=== PATIENT | female | born 1985 | race Caucasian/White ===

== ENCOUNTER → 2017-04-19 | Outpatient (CLI) | payer OTHER ==
[2017-04-19 11:46] LABS: EKG EKG PERFORMED
[2017-04-19 12:30] LABS: Appearance,Urine Clear (Clear); Bilirubin,Urine Negative (Negative); Glucose,Urine (UA) Negative (Negative); Ketones,Urine Negative (Negative); Leukocyte Esterase,Urine Moderate (Negative); Mucus,Urine Rare /hpf; Nitrite,Urine Negative (Negative); Particle Count 3504; Protein,Urine Negative (Negative); Specific Gravity,Urine 1.013 (1.001-1.035); Squamous Epithelial Cell,Urine 3 /hpf (0-4); UA Billing (MACRO vs. MICRO) MICRO; Urobilinogen,Urine <2.0 mg/dL (<2.0); WBC,Urine 3 /hpf (0-5)
--- NOTE | 2017-04-19 12:33 | XR ---
EXAMINATION TYPE: XR chest 2V DATE OF EXAM: 04/19/2017 COMPARISON: NONE TECHNIQUE: PA and lateral views submitted. HISTORY: Presurgical testing FINDINGS: The lungs are clear and there is no pneumothorax, pleural effusion, or focal pneumonia. IMPRESSION: 1. No acute process.
[2017-04-19 12:47] LABS: HCT 42.7 % (34.0-46.0); HGB 14.3 gm/dL (11.4-16.0); MCV 91.5 fL (80.0-100.0); RBC 4.66 m/uL (3.80-5.40); WBC (Perox) 4.93
[2017-04-19 12:48] LABS: Basophils % (A) 0 %; CHCM 35.1; Eosinophils # (A) 0.1 k/uL (0-0.7); Eosinophils % (A) 1 %; HDW 2.55; Luc # (Auto) 0.06; Luc % (Auto) 1; Lymphocytes # (A) 1.2 k/uL (1.0-4.8); Lymphocytes % (A) 23 %; MCH 30.7 pg (25.0-35.0); MCHC 33.5 g/dL (31.0-37.0); Mean Platelet Volume 7.8; Monocytes # (A) 0.3 k/uL (0-1.0); Monocytes % (A) 6 %; Neutrophils # (A) 3.4 k/uL (1.3-7.7); Neutrophils % (A) 69 %; RDW 14.8 % (11.5-15.5)
[2017-04-19 12:58] LABS: Anion Gap 11 mmol/L; Blood Urea Nitrogen 15 mg/dL (7-17); Calcium 10.1 mg/dL (8.4-10.2); Carbon Dioxide 25 mmol/L (22-30); Chloride 103 mmol/L (98-107); Glucose 86 mg/dL (74-99); Non-African American GFR(MDRD) >60 (>60 ml/min/1.73 sqM); Potassium 4.1 mmol/L (3.5-5.1); Sodium 139 mmol/L (137-145)
[2017-04-19 13:25] LABS: Partial Thromboplastin Time 28.9 sec (22.0-30.0); Prothrombin Time 10.5 sec (9.0-12.0)
== END | disposition home or self-care (01) ==
LOC: LABWHC1 11:34
PROVIDERS: ATTEND Orthopaedic Surgery Orthopaedic Surgery of the Spine
DX: Z01.818 Encounter for other preprocedural examination (principal); Z01.812 Encounter for preprocedural laboratory examination; Z01.810 Encounter for preprocedural cardiovascular examination
CPT/HCPCS: 36415; 71020; 80048; 81001; 85025; 85610; 85730; 87070; 93005

== ENCOUNTER 2017-05-10 08:03 | Inpatient (IN) | payer OTHER ==
[2017-05-02 12:27] VITALS: BMI 40.3
[2017-05-03 14:45] LABS: Appearance,Urine Clear (Clear); Bacteria,Urine Rare /hpf; Bilirubin,Urine Negative (Negative); Glucose,Urine (UA) Negative (Negative); Ketones,Urine Negative (Negative); Leukocyte Esterase,Urine Negative (Negative); Mucus,Urine Rare /hpf; Nitrite,Urine Negative (Negative); PH, Urine 6.5 (5.0-8.0); Particle Count 896; Protein,Urine Negative (Negative); RBC,Urine 10 /hpf (0-5); Specific Gravity,Urine 1.014 (1.001-1.035); Squamous Epithelial Cell,Urine <1 /hpf (0-4); UA Billing (MACRO vs. MICRO) MICRO; Urobilinogen,Urine <2.0 mg/dL (<2.0)
[~2017-05-10 08:03] MED LIST: BACITRACIN 50,000 UNIT, POLYMYXIN B 500,000 UNIT in SODIUM CHLORIDE 0.9% IRRIGATIO 1,00... IRRIGATION ONE; DEXAMETHASONE SOD PHOSPHATE 10 MG/ML 1 ML VIAL IV ONE; HYDROmorphone 0.5 MG/0.5 ML SYRINGE IVP PRN; LACTATED RINGERS 1,000 ML IV SCH; LIDOCAINE 1% 20 ML VIAL (10MG/ML) FOR IV START INTRADERMA PRN; ONDANSETRON 4 MG/2 ML VIAL IVP ONE; SCOPOLAMINE 1.5MG/72HR PATCH TRANSDERM ONE; ceFAZolin 3 GM in SODIUM CHLORIDE 0.9% 100 ML IVPB ONE
[2017-05-10 08:41] VITALS: RESP 18
[2017-05-10] MEDS: MIDAZOLAM 2 MG/2 ML VIAL IV PRN ×2 (09:22→09:51)
[2017-05-10 09:51] VITALS: TEMP 98.9
[2017-05-10 10:41] VITALS: BP 116/70; PULSE 119
--- NOTE | 2017-05-10 10:50 | P.DS ---
Providers Date of admission: 05/10/17 08:03 Attending physician: Jensen Breen Primary care physician: Tra Gramajo [facility] Course: patient is well known to our service. She was 31-year-old female who has long- standing history is of lumbar issues and has been having severe worsening of her lower back and left lower extremity symptoms. She is severe lower extremity sciatica due to a spondylolisthesis and disc herniation at L4 5 and L5 -S1. She was scheduled to undergo decompression and fusion surgery at L4 5 and L5-S1 with our service here today. This procedure had actually been scheduled a couple weeks ago but she was having sinus tachycardia and we had to postpone the surgery. In his past couple weeks she has had evaluation with cardiology service and was started on a beta carmen as well as undergoing 2-D echo to evaluate her ventricular functions. Her function and been found to be appropriate and she was started on beta carmen with expectations of better control of her heart rate. She also had initiated some workup for other causes of her sinus tachycardia. Over this time she has continued to have severe pain in her back and lower extremities and has been nearly anticipating her surgery. Today in preop however, she has been having significant tachycardia with her pulse rate between 125 and 130. She did take her metoprolol 25 mg this morning. She denies any fevers or chills at home. Her temperature was slightly elevated at 99.6. She is not having any infectious process. She was given medication after being evaluated with anesthesia. She was given some Versed to see if this would help control some potential anxiety and see if this would alleviate her tachycardia. Despite the medication she continue to have tachycardia and 125-130. Her pressure remained stable. Her respirations are normal. She is not in any acute distress. She is not having any chest pain or shortness breath. we had long discussions with the patient her and with the anesthesiologist today in preoperative holding area. With her pulse being significant tachycardic despite a sinus tachycardia rhythm we felt that it would be at significantly increased risk to proceed with surgical intervention today. Surgery entails the patient being in a prone position and several hours of surgical intervention for decompression and fusion at L4 5 and L5-S1. This would certainly put the patient at increased risk given her resting heart rate at 130. We felt that it would be best for the patient to postpone surgery until we can figure out a way to better control her heart rate and protect her heart attack function. I discussed case with Dr. markham, her primary care physician, this morning as well. He agreed with postponing surgery for now. He would like to continue follow her to titrate her medications to see if we can get better control of her heart rate and perhaps pursue further workup or evaluation to determine cause of her sinus tachycardia. Certainly the patient is disappointed with the setback but understands the need to exercise caution in this matter. She would like to pursue scheduling of the surgery as soon as she is able. We will work with her primary care physician as well as her rn resource nurse on an outpatient basis to get better control of her heart rate and plan for scheduling her surgical procedure at that point. I answered her questions and her 's questions to the best my ability healing which they can understand and they are agreeable. Patient Condition at Discharge: Fair Plan - Discharge Summary New Discharge Prescriptions: No Action traMADol HCL [Ultram] 50 - 100 mg PO Q6HR PRN PRN Reason: Pain Ibuprofen [Motrin] 800 mg PO Q6HR PRN PRN Reason: Pain Metoprolol Succinate (ER) [Toprol Xl] 25 mg PO DAILY HYDROcodone/APAP 7.5-325MG [[place] 7.5-325] 1 tab PO Q8H PRN PRN Reason: Pain Discharge Medication List Ibuprofen [Motrin] 800 mg PO Q6HR PRN 04/19/17 [History] traMADol HCL [Ultram] 50 - 100 mg PO Q6HR PRN 04/19/17 [History] HYDROcodone/APAP 7.5-325MG [[place] 7.5-325] 1 tab PO Q8H PRN 05/02/17 [History] Metoprolol Succinate (ER) [Toprol Xl] 25 mg PO DAILY 05/02/17 [History]
== END 2017-05-10 10:59 | disposition home or self-care (01) | DRG 347 ==
LOC: 2ORMAIN 08:03
PROVIDERS: ADMIT Orthopaedic Surgery Orthopaedic Surgery of the Spine; ATTEND Orthopaedic Surgery Orthopaedic Surgery of the Spine
DX: M51.16 Intervertebral disc disorders with radiculopathy, lumbar region (principal); M43.16 Spondylolisthesis, lumbar region; M51.17 Intervertebral disc disorders with radiculopathy, lumbosacral region; M43.17 Spondylolisthesis, lumbosacral region; R00.0 Tachycardia, unspecified; Z79.899 Other long term (current) drug therapy; Z53.8 Procedure and treatment not carried out for other reasons; Z87.891 Personal history of nicotine dependence; Z88.2 Allergy status to sulfonamides; Z82.49 Family history of ischemic heart disease and other diseases of the circulatory system
CPT/HCPCS: 36415; 81001; 84443; 86850; 86900; 86901

== ENCOUNTER → 2017-05-31 | Outpatient (CLI) | payer OTHER ==
[2017-05-31 14:14] LABS: Partial Thromboplastin Time 28.7 sec (22.0-30.0)
[2017-05-31 14:17] LABS: Basophils % (A) 0 %; CH 30.5; CHCM 32.6; Eosinophils # (A) 0.1 k/uL (0-0.7); Eosinophils % (A) 1 %; HCT 42.7 % (34.0-46.0); HDW 2.75; HGB 14.1 gm/dL (11.4-16.0); Luc # (Auto) 0.07; Luc % (Auto) 1; Lymphocytes # (A) 1.2 k/uL (1.0-4.8); Lymphocytes % (A) 23 %; MCH 31.1 pg (25.0-35.0); MCHC 33.1 g/dL (31.0-37.0); Mean Platelet Volume 8.3; Monocytes # (A) 0.3 k/uL (0-1.0); Monocytes % (A) 6 %; Neutrophils # (A) 3.5 k/uL (1.3-7.7); Neutrophils % (A) 68 %; RBC 4.55 m/uL (3.80-5.40); RDW 14.3 % (11.5-15.5); WBC 5.2 k/uL (3.8-10.6); WBC (Perox) 5.14
[2017-05-31 14:20] LABS: Appearance,Urine Clear (Clear); Bilirubin,Urine Negative (Negative); Glucose,Urine (UA) Negative (Negative); Ketones,Urine Negative (Negative); Leukocyte Esterase,Urine Negative (Negative); Nitrite,Urine Negative (Negative); Protein,Urine Negative (Negative); Specific Gravity,Urine 1.012 (1.001-1.035); UA Billing (MACRO vs. MICRO) CHEM; Urobilinogen,Urine <2.0 mg/dL (<2.0)
[2017-05-31 14:22] LABS: Anion Gap 11 mmol/L; Blood Urea Nitrogen 13 mg/dL (7-17); Calcium 9.7 mg/dL (8.4-10.2); Carbon Dioxide 25 mmol/L (22-30); Chloride 104 mmol/L (98-107); Glucose 92 mg/dL (74-99); Non-African American GFR(MDRD) >60 (>60 ml/min/1.73 sqM); Potassium 4.4 mmol/L (3.5-5.1); Sodium 140 mmol/L (137-145)
== END | disposition home or self-care (01) ==
LOC: LABPAT 12:40
PROVIDERS: ATTEND Orthopaedic Surgery Orthopaedic Surgery of the Spine
DX: Z01.812 Encounter for preprocedural laboratory examination (principal); M43.16 Spondylolisthesis, lumbar region; M51.16 Intervertebral disc disorders with radiculopathy, lumbar region
CPT/HCPCS: 36415; 80048; 80162; 81003; 85025; 85610; 85730; 86850; 86900; 86901